=== PATIENT | female | born 1955 | race Caucasian/White ===

== ENCOUNTER 2019-01-14 22:37 | Emergency (ER) | payer OTHER ==
[~2019-01-14] VITALS: Ht 154.9 cm; Wt 99.7 kg
[2019-01-14] MEDS ORDERED: GLUCTAB (22:47)
[2019-01-14] MEDS ORDERED: ASPI81TA85 PO (22:47)
[2019-01-14] MEDS ORDERED: DULE100A (22:47)
[2019-01-14] MEDS ORDERED: ANAS1TAB2 (22:47)
[2019-01-14] MEDS ORDERED: LIPI20TA (22:47)
[2019-01-14] MEDS ORDERED: GLIP10TA18 (22:47)
[2019-01-14] MEDS ORDERED: ALTA1CAP4 (22:47)
[2019-01-14] MEDS ORDERED: JANU100T (22:47)
[2019-01-14] MEDS ORDERED: SYNT125T (22:47)
[2019-01-14] MEDS ORDERED: VITAD1000T PO (22:51)
[2019-01-14] MEDS ORDERED: ZINC1TAB2 PO (22:51)
[2019-01-14] MEDS ORDERED: VITAE20CA PO (22:51)
[2019-01-14] MEDS ORDERED: MAGN64TASA PO (22:51)
[2019-01-14] MEDS ORDERED: CALC500T52 PO (22:51)
[2019-01-14] MEDS ORDERED: MAGN250T7 PO (22:51)
[2019-01-15 04:17] VITALS: BP 178/92
--- NOTE | 2019-01-15 08:48 | REP ---
Right knee five views: There is tricompartment osteoarthritis. There is a large effusion. There is no fracture or dislocation. No calcifications or foreign bodies. Impression: Tricompartment osteoarthritis. Large joint effusion. Electronically Signed by Neal Lorenzana MD 01/15/2019 08:38 A
--- NOTE | 2019-01-15 14:24 | ED PDOC ---
Post-Departure Follow-Up loreta frazier faxed formal report of right knee for Kike Pozo MD Jan 15, 2019 14:24
== END 2019-01-15 04:19 | disposition home or self-care (01) ==
LOC: M ED 22:37
DX: S86.311A Strain of muscle(s) and tendon(s) of peroneal muscle group at lower leg level, right leg, initial encounter (principal); M17.11 Unilateral primary osteoarthritis, right knee; M25.461 Effusion, right knee; X50.1XXA Overexertion from prolonged static or awkward postures, initial encounter; Y92.098 Other place in other non-institutional residence as the place of occurrence of the external cause; I10 Essential (primary) hypertension; E11.9 Type 2 diabetes mellitus without complications; E66.9 Obesity, unspecified; Z68.41 Body mass index [BMI] 40.0-44.9, adult; Z79.899 Other long term (current) drug therapy; Z79.84 Long term (current) use of oral hypoglycemic drugs; Z79.82 Long term (current) use of aspirin

== ENCOUNTER → 2019-12-03 | Outpatient (CLI) | payer OTHER ==
[~2019-12-03] MED LIST: ALTA1CAP4; ANAS1TAB2; ASPI81TA85 PO; CALC500T52 PO; CHOL100029 PO; DULE100A; GLIP10TA18; GLUCTAB; JANU100T; LIPI20TA; MAGN250T7 PO; MAGN64TASA PO; SYNT125T; VITAE20CA PO; ZINC1TAB2 PO
== END ==
LOC: M LAB 11:39
PROVIDERS: ATTEND Internal Medicine Gastroenterology
DX: K90.0 Celiac disease (principal)

== ENCOUNTER → 2021-06-03 | Outpatient (REF) | payer OTHER ==
[~2021-06-03] MED LIST changes: -ASPI81TA85 PO; +ASPI81TA86 PO
[2021-06-03 19:03] LABS: CREATININE, URINE 58.5 MG/DL; MALB URINE SIEMENS 19.3 MG/L; MAU/CREAT RATIO 32.9 MCG/MG (0.0-30.0)
== END ==
LOC: M LAB REF 17:37
PROVIDERS: ATTEND Nurse Practitioner Family
DX: E11.65 Type 2 diabetes mellitus with hyperglycemia (principal)